=== PATIENT | female | born 1945 | race African-American/Black ===

== ENCOUNTER → 2018-01-04 | Day surgery (SDC) | payer OTHER ==
[~2018-01-04] MED LIST: PROPOFOL 20 ML IV
[2018-01-04 08:30] LABS: POC GLUCOSE 152 mg/dL (70-99)
[2018-01-04] MEDS: IV RINGERS,LACTATED 1000ML 1,000 ML IV (08:34)
== END | disposition home or self-care (01) ==
LOC: SURG 07:58
DX: K57.30 Diverticulosis of large intestine without perforation or abscess without bleeding (principal); I10 Essential (primary) hypertension; E78.5 Hyperlipidemia, unspecified; E11.9 Type 2 diabetes mellitus without complications; Z90.49 Acquired absence of other specified parts of digestive tract; J44.9 Chronic obstructive pulmonary disease, unspecified; Z90.710 Acquired absence of both cervix and uterus; Z90.79 Acquired absence of other genital organ(s); Z90.722 Acquired absence of ovaries, bilateral; Z98.890 Other specified postprocedural states; Z79.82 Long term (current) use of aspirin; Z79.84 Long term (current) use of oral hypoglycemic drugs; Z79.899 Other long term (current) drug therapy; Z87.442 Personal history of urinary calculi
CPT/HCPCS: 45380; 82962; 88305; J2704

== ENCOUNTER → 2018-02-17 | Outpatient (CLI) | payer OTHER ==
[2018-01-04 09:44] VITALS: BP 115/66
[~2018-02-17] MED LIST changes: +ASPI-630 PO; +GLIP5TAB10 PO; +LORA10TA68 PO; +LOSA1TAB22 PO; +METF10003 PO; +OMEG1CAP6 PO; +PROAIR HFA8.5 GM INH; -PROPOFOL 20 ML IV; +REGADENOSON 0.4 MG/5 ML DISP.SYRIN. IV ONE; +SIMV40TA3 PO; +TIOT18CA IH
--- NOTE | 2018-02-17 11:30 | RAD ---
MR#: [id number] Date of Study: 02/17/2018 Ordering Physician: ALPHONSE FERRER, Referring Physician: KANCHAN BLACKWELL Tech: RT Madison (R) (N) APPROVED REPORT Test Type: Pharmacological Stress Nurse/Tech: Jayne Goldsmith R.N. Test Indications: chest pain x 1 month Cardiac History: htn, copd, dm Medications: see printout Medical History: see printout Resting ECG: sr Resting Heart Rate: 59 bpm Resting Blood Pressure: 142/94mmHg Pretest Chest Pain: No chest pain Nurse/Tech Notes lungs cta, heart tones regular Consent: The procedure was explained to the patient in lay terms. Informed consent was witnessed. Lamin eout was entered into [employer]. History and Stress Test performed by MADELINE Luevano Pharm. Details Pharmacologic stress testing was performed using 0.4mg per 5ml of regadenoson given intravenously ove r 7-10 seconds. Stress Symptoms pt c/o R sided tightness and hart POST EXERCISE Reason for Termination: Infusion complete Target HR: No Max HR: 93 bpm Max Blood Pressure: 172/67mmHg Chest Pain: No. Arrhythmia: No. ST Change: No. INTERPRETATION Stress EKG Conclusion: Baseline EKG showed sinus rhythm. No ischemic changes at peak stress. No arr hythmias. Imaging Protocol IMAGE PROTOCOL: Rest Tc-99m/stress Tc-99m 1 day Rest: Stress: Viability: Radiopharm.Tc99m OvuohazhnOi24l Sestamibi Dose11.5mCi 36.1mCi Duration 13min. 13min. Img Date 02/17/2018 02/17/2018 Inj-Img [id number]. 60min. Rest Admin Site:IV - Right AntecubitalAdministrator:RT Jean-Pierre Wallace)(N) Stress Admin Site: IV - Right AntecubitalAdministrator: MADELINE Luevano STRESS DATA End Diast. Vol.68.0mlLVEDV index BSA34.0ml End Syst. Vol.12.0mlLVESV index BSA6.0ml Myocardial Kila822.0gEject. Ufmpixlg74.0% Stress Scores Regional WT0.00Summed WT0.00 Regional WM0.00Summed WM1.00 Study quality was good. Left Ventricular size was Normal at Rest and Stress. Lung uptake was Normal. Left Ventricular ejection fraction is 82%. The rest and stress images show normal perfusion, normal contraction and thickening. LV Perf. Quant 17 Seg. SSS0.00 17 Seg. SRS0.00 17 Seg. SDS0.00 Stress Defect Extent (% LAD)0.00Rest Defect Extent (% LAD)0.00Rev. Defect Extent (% LAD)0.00 Stress Defect Extent (% LCX) 0.00Rest Defect Extent (% LCX)0.00Rev. Defect Extent (% LCX)0.00 Stress Defect Extent (% RCA)0.00Rest Defect Extent (% RCA)0.00Rev. Defect Extent (% RCA)0.00 Stress Defect Extent (% SYLVIE)0.00Rest Defect Extent (% SYLVIE)0.00Rev. Defect Extent (% SYLVIE)0.00 Conclusion 1. Regadenoson cardioisotope stress test did not show any evidence of ischemia or infarct. 2. Normal left ventricular systolic function with ejection fraction calculated at 82%. 3. Low risk for cardiac events. Signed by : Willis Glynn Electronically Approved : 02/17/2018 11:28:59
== END | disposition home or self-care (01) ==
LOC: NM 07:16
PROVIDERS: ATTEND Internal Medicine
DX: R07.89 Other chest pain (principal); I10 Essential (primary) hypertension; E11.9 Type 2 diabetes mellitus without complications; J44.9 Chronic obstructive pulmonary disease, unspecified; Z79.899 Other long term (current) drug therapy
CPT/HCPCS: 78452; 93017; 96374; 96375; 96376; A9500; J2785

== ENCOUNTER 2018-08-08 17:58 | Emergency (ER) | payer OTHER ==
[~2018-08-08] VITALS: Ht 175.3 cm; Wt 83.9 kg
[~2018-08-08 17:58] MED LIST changes: +ALBU2.5V8 INH; -METF10003 PO; +METF10007 PO; -PROAIR HFA8.5 GM INH; -REGADENOSON 0.4 MG/5 ML DISP.SYRIN. IV ONE
[2018-08-08 18:30] VITALS: BP 161/74
[2018-08-08] MEDS ORDERED: IPRATRPIUM/ALBUTEROL 0.5/2.5MG 3 ML NEBU. NEB ONE (19:00)
[2018-08-08 19:08] LABS: BASO # 0.1 x10^3/uL (0.0-0.2); BASO % 1 % (0-3); EOS # 0.1 x10^3/uL (0.0-0.7); EOS % 2 % (0-3); HEMATOCRIT 37.3 % (36.0-47.0); HEMOGLOBIN 12.1 g/dL (12.0-15.5); LYMPH # 2.8 x10^3/uL (1.0-4.8); LYMPH % 33 % (24-48); MEAN CORPUSCULAR HEMOGLOBIN 28 pg (25-35); MEAN CORPUSCULAR HGB CONC 32 g/dL (31-37); MEAN CORPUSCULAR VOLUME 86 fL (79-100); MONO # 0.8 x10^3/uL (0.0-1.1); MONO % 9 % (0-9); NEUT # 4.7 x10^3uL (1.8-7.7); NEUT % 55 % (31-73); PLATELET COUNT 245 x10^3/uL (140-400); RED BLOOD COUNT 4.32 x10^6/uL (3.50-5.40); RED CELL DISTRIBUTION WIDTH 13.5 % (11.5-14.5); WHITE BLOOD COUNT 8.5 x10^3/uL (4.0-11.0)
[2018-08-08 19:21] LABS: CALCIUM 11.1 mg/dL (8.5-10.1); GFR 66.3; POTASSIUM 3.9 mmol/L (3.5-5.1)
--- NOTE | 2018-08-08 19:24 | RAD ---
PA and lateral chest. HISTORY: Left arm discomfort, chronic productive cough, hypertension, COPD PA and lateral views were taken of the chest. There is elevation of the right diaphragm. Heart is normal in size. There is no effusion. There is no confluent infiltrate. IMPRESSION: 1. No acute infiltrates. Electronically signed by: Robel Christine MD (08/08/2018 7:19 PM) [facility]
[2018-08-08 19:27] LABS: ALBUMIN 4.2 g/dL (3.4-5.0); TOTAL BILIRUBIN 0.3 mg/dL (0.2-1.0); TOTAL PROTEIN 8.3 g/dL (6.4-8.2)
[2018-08-08 20:04] LABS: BILIRUBIN,URINE NEGATIVE (NEG); CLARITY,URINE CLEAR; COLOR,URINE YELLOW; NITRITE,URINE NEGATIVE (NEG); PROTEIN,URINE NEGATIVE (NEG-TRACE); UROBILINOGEN,URINE 0.2 mg/dL (0.2 mg/dL)
[2018-08-08 20:08] LABS: BACTERIA,URINE FEW /HPF (0-FEW); SQUAMOUS EPITHELIAL CELL,UR MOD /LPF
[2018-08-08 20:09] LABS: RBC,URINE 0 /HPF (0-2)
[2018-08-08] MEDS ORDERED: PRED50TA PO (20:26)
--- NOTE | 2018-08-08 20:27 | PHYS DOC ---
Past Medical History Past Medical History: COPD, Depression, Diabetes-Type II, High Cholesterol, Hypertension (LEDA JAIME APRN) Past Surgical History: Hysterectomy, Other Additional Past Surgical Histo: cyst removed from under right breast (LEDA JAIME APRN) Alcohol Use: Occasionally Drug Use: None (LEDA JAIME APRN) Adult General Chief Complaint Chief Complaint: UPPER EXTREMITY PAIN HPI HPI Patient is a 72 year old female who presents with pain in her left shoulder that is worse with movement. No known injury. She states the pain started today. She has not tried OTC medications. She denies SOA, diaphoresis, chest or abdominal pain. (LEDA JAIME APRN) Review of Systems Review of Systems Constitutional: Denies fever or chills [] Eyes: Denies change in visual acuity, redness, or eye pain [] HENT: Denies nasal congestion or sore throat [] Respiratory: Denies cough or shortness of breath [] Cardiovascular: No additional information not addressed in HPI [] GI: Denies abdominal pain, nausea, vomiting, bloody stools or diarrhea [] : Denies dysuria or hematuria [] Musculoskeletal: See HPI Integument: Denies rash or skin lesions [] Neurologic: Denies headache, focal weakness or sensory changes [] Endocrine: Denies polyuria or polydipsia [] All other systems were reviewed and found to be within normal limits, except as documented in this note. (LEDA JAIME APRN) Current Medications Current Medications Current Medications Medications (Trade) Dose Ordered Sig/Enma Start Time Stop Time Status Last Admin Dose Admin Albuterol/ Ipratropium (Duoneb) 3 ml 1X ONCE 08/08/18 19:00 08/08/18 19:01 DC 08/08/18 18:55 3 ML (ALPHONSE RASHID DO) Allergies Allergies Allergies Coded Allergies Type Severity Reaction Last Updated Verified No Known Drug Allergies 01/04/18 No (ALPHONSE RASHID DO) Physical Exam Physical Exam Constitutional: Well developed, well nourished, no acute distress, non-toxic appearance. [] Cardiovascular:Heart rate regular rhythm, no murmur [] Lungs & Thorax: Bilateral breath sounds clear to auscultation [] Abdomen: Bowel sounds normal, soft, no tenderness, no masses, no pulsatile masses. [] Skin: Warm, dry, no erythema, no rash. [] Back: No tenderness, no CVA tenderness. [] Extremities: tenderness to left shoulder with movement, no cyanosis, no clubbing, ROM intact, no edema. [] Neurologic: Alert and oriented X 3, normal motor function, normal sensory function, no focal deficits noted. [] Psychologic: Affect normal, judgement normal, mood normal. [] (LEDA JAIME APRN) Current Patient Data Lab Values Laboratory Tests Test 08/08/18 18:59 08/08/18 19:54 White Blood Count 8.5 x10^3/uL (4.0-11.0) Red Blood Count 4.32 x10^6/uL (3.50-5.40) Hemoglobin 12.1 g/dL (12.0-15.5) Hematocrit 37.3 % (36.0-47.0) Mean Corpuscular Volume 86 fL (79-100) Mean Corpuscular Hemoglobin 28 pg (25-35) Mean Corpuscular Hemoglobin Concent 32 g/dL (31-37) Red Cell Distribution Width 13.5 % (11.5-14.5) Platelet Count 245 x10^3/uL (140-400) Neutrophils (%) (Auto) 55 % (31-73) Lymphocytes (%) (Auto) 33 % (24-48) Monocytes (%) (Auto) 9 % (0-9) Eosinophils (%) (Auto) 2 % (0-3) Basophils (%) (Auto) 1 % (0-3) Neutrophils # (Auto) 4.7 x10^3uL (1.8-7.7) Lymphocytes # (Auto) 2.8 x10^3/uL (1.0-4.8) Monocytes # (Auto) 0.8 x10^3/uL (0.0-1.1) Eosinophils # (Auto) 0.1 x10^3/uL (0.0-0.7) Basophils # (Auto) 0.1 x10^3/uL (0.0-0.2) Sodium Level 139 mmol/L (136-145) Potassium Level 3.9 mmol/L (3.5-5.1) Chloride Level 102 mmol/L (98-107) Carbon Dioxide Level 29 mmol/L (21-32) Anion Gap 8 (6-14) Blood Urea Nitrogen 24 mg/dL (7-20) H Creatinine 1.0 mg/dL (0.6-1.0) Estimated GFR (Cockcroft-Gault) 66.3 BUN/Creatinine Ratio 24 (6-20) H Glucose Level 120 mg/dL (70-99) H Calcium Level 11.1 mg/dL (8.5-10.1) H Total Bilirubin 0.3 mg/dL (0.2-1.0) Aspartate Amino Transferase (AST) 16 U/L (15-37) Alanine Aminotransferase (ALT) 28 U/L (14-59) Alkaline Phosphatase 96 U/L (46-116) Troponin I Quantitative < 0.017 ng/mL (0.000-0.055) Total Protein 8.3 g/dL (6.4-8.2) H Albumin 4.2 g/dL (3.4-5.0) Albumin/Globulin Ratio 1.0 (1.0-1.7) Urine Collection Type Unknown Urine Color Yellow Urine Clarity Clear Urine pH 6.0 Urine Specific [place] 1.020 Urine Protein Negative mg/dL (NEG-TRACE) Urine Glucose (UA) Negative mg/dL (NEG) Urine Ketones (Stick) Negative mg/dL (NEG) Urine Blood Negative (NEG) Urine Nitrite Negative (NEG) Urine Bilirubin Negative (NEG) Urine Urobilinogen Dipstick 0.2 mg/dL (0.2 mg/dL) Urine Leukocyte Esterase Negative (NEG) Urine RBC 0 /HPF (0-2) Urine WBC 1-4 /HPF (0-4) Urine Squamous Epithelial Cells Mod /LPF Urine Bacteria Few /HPF (0-FEW) Urine Mucus Mod /LPF Laboratory Tests 08/08/18 18:59 Laboratory Tests 08/08/18 18:59 (ALPHONSE RASHID DO) EKG EKG [] (LEDA JAIME APRN) Radiology/Procedures Radiology/Procedures [] (LEDA JAIME APRN) Radiology/Procedures PROCEDURE: CHEST PA & LATERAL PA and lateral chest. HISTORY: Left arm discomfort, chronic productive cough, hypertension, COPD PA and lateral views were taken of the chest. There is elevation of the right diaphragm. Heart is normal in size. There is no effusion. There is no confluent infiltrate. IMPRESSION: 1. No acute infiltrates. Electronically signed by: Robel Christine MD (08/08/2018 7:19 PM) [facility] (ALPHONSE RASHID DO) Course & Med Decision Making Course & Med Decision Making Pertinent Labs and Imaging studies reviewed. (See chart for details) [] (LEDA JAIME APRN) Dragon Disclaimer Dragon Disclaimer This electronic medical record was generated, in whole or in part, using a voice recognition dictation system. (LEDA JAIME APRN) Departure Departure Impression: Primary Impression: Shoulder strain Disposition: HOME, SELF-CARE Condition: STABLE Referrals: ALPHONSE FERRER MD (PCP) Patient Instructions: Shoulder Joint Replacement, Care After Additional Instructions: Take the medication as prescribed. This should treat your asthma exacerbation as well as your shoulder pain. Follow-up with your primary care provider if not improving in 3 days or return to the emergency department if worsening. None of your cardiac workup showed cause for concern. If you develop chest pain return to the emergency department immediately. Scripts Prednisone (PREDNISONE) 50 Mg Tablet 1 TAB PO DAILY for inflammation, #5 TAB Prov: LEDA JAIME APRN 08/08/18 Attending Signature Attending Signature I have reviewed the PA/POINTING MACHINE OPERATOR's note and plan of care. I was available for consultation as needed during the patient's visit in the emergency department. I agree with the clinical impression, plan, and disposition. (ALPHONSE RASHID DO) LEDA JAIME APRN Aug 08, 2018 20:27 ALPHONSE RASHID DO November 20, 2018 04:49
--- NOTE | 2018-08-09 06:41 | EKG ---
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
== END 2018-08-08 20:39 | disposition home or self-care (01) ==
LOC: ER 17:58
DX: S46.912A Strain of unspecified muscle, fascia and tendon at shoulder and upper arm level, left arm, initial encounter (principal); I10 Essential (primary) hypertension; E78.00 Pure hypercholesterolemia, unspecified; J44.9 Chronic obstructive pulmonary disease, unspecified; E11.9 Type 2 diabetes mellitus without complications; X58.XXXA Exposure to other specified factors, initial encounter; Y93.89 Activity, other specified; Y92.89 Other specified places as the place of occurrence of the external cause; Y99.8 Other external cause status
CPT/HCPCS: 36415; 71046; 80053; 81001; 84484; 85025; 93005; 94640; 99284; J7620

== ENCOUNTER → 2018-10-03 | Outpatient (CLI) | payer OTHER ==
[~2018-10-03] MED LIST changes: +PRED50TA PO
--- NOTE | 2018-10-03 12:10 | KCIC ---
MR of the right ankle HISTORY: Arthralgia of the right knee. Surgery years ago. Chronic pain and swelling. TECHNIQUE: Routine multiplanar sequences are obtained. FINDINGS: Medial meniscus demonstrates no evidence of tear. The lateral meniscus is very small and heterogeneous compatible with chronic tear and/or prior meniscectomy. The anterior and posterior cruciate ligaments are intact. Medial collateral ligament is intact. Iliotibial band unremarkable. Fibular collateral ligament, biceps femoris tendon and popliteus tendon are intact. Extensor mechanism is intact. Moderate joint effusion. No significant Segovia's cyst. Primary osteoarthritis at all joint compartments. Severe chondral loss at the posterior aspect of the lateral joint. Partial chondral thinning at the other joint compartments. No aggressive bone destruction or acute fracture. There are also degenerative changes at the tibiofibular joint. Ovoid structure identified in the posterior aspect of the intracondylar notch measures 5 mm, suspicious for loose body. IMPRESSION: 1. Very abnormal lateral meniscus compatible with degenerative tear and/or prior meniscectomy. 2. Primary osteoarthritis, severe at the lateral joint compartment. 3. Probable small loose body in the posterior intercondylar notch. Electronically signed by: Sandeep Saunders MD (10/03/2018 12:07 PM) [facility] [id number]
== END | disposition home or self-care (01) ==
LOC: KCIC MRI 08:40
PROVIDERS: ATTEND Internal Medicine Rheumatology
DX: M17.11 Unilateral primary osteoarthritis, right knee (principal); M25.461 Effusion, right knee
CPT/HCPCS: 73721

== ENCOUNTER → 2019-09-01 | Outpatient (CLI) | payer MEDICARE, OTHER ==
[~2019-09-01] MED LIST changes: +SIMV40TA18 PO; -SIMV40TA3 PO
--- NOTE | 2019-09-01 16:07 | RAD ---
CHEST PA LATERAL INDICATION: Pleuritic chest pain, cough, sinus congestion. COMPARISON STUDY: 08/08/2018. FINDINGS: Lungs: Asymmetric elevation of the right hemidiaphragm. No pulmonary mass or consolidation. The tracheobronchial tree and hilar structures are normal. Pleura: No pleural effusion or pneumothorax. Heart and Mediastinum: The cardiomediastinal silhouette is normal. The great vessels of the thorax are normal. Bones and Soft Tissues: Degenerative changes of the spine. IMPRESSION: No acute cardiopulmonary process. Electronically signed by: Kel Go MD (09/01/2019 4:04 PM) [id number]
== END ==
LOC: RAD 10:27
PROVIDERS: ATTEND Internal Medicine
DX: R07.81 Pleurodynia (principal)
CPT/HCPCS: 71046

== ENCOUNTER → 2020-04-30 | Outpatient (CLI) | payer OTHER ==
--- NOTE | 2020-04-30 16:32 | KCIC ---
Study: CR CHEST PA LATERAL Indication: Shortness of air. COPD. Smoking history. Pain with inspiration. Comparison: 09/01/2019 Findings: The cardiomediastinal silhouette is within normal limits for size. Unremarkable bambi with redemonstration of a calcified granuloma projecting just below the aortic arch. No lobar consolidation, pleural effusion or pneumothorax. Sigmoid thoracolumbar curvature also present on the comparison. Impression: No acute radiographic abnormality of the chest. No significant change from 09/01/2019. Electronically signed by: GUIDO VENTURA MD (04/30/2020 4:29 PM) [id number]
== END ==
LOC: KCIC 14:52
PROVIDERS: ATTEND Internal Medicine
DX: R06.02 Shortness of breath (principal); Z87.891 Personal history of nicotine dependence; Z87.09 Personal history of other diseases of the respiratory system; M43.8X5 Other specified deforming dorsopathies, thoracolumbar region
CPT/HCPCS: 71046

== ENCOUNTER → 2021-01-28 | Outpatient (CLI) | payer OTHER ==
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
== END ==
LOC: KCIC 11:27 → EDBD 11:27
PROVIDERS: ATTEND Internal Medicine
DX: R07.81 Pleurodynia (principal); I89.8 Other specified noninfective disorders of lymphatic vessels and lymph nodes
CPT/HCPCS: 71100

== ENCOUNTER → 2021-01-30 | Outpatient (CLI) | payer OTHER ==
--- NOTE | 2021-01-30 10:32 | KCIC ---
EXAM: Bilateral digital screening mammogram with tomosynthesis. HISTORY: 75-year-old female presents for screening mammography. TECHNIQUE: Full-field digital craniocaudal and mediolateral oblique 2D and 3D tomosynthesis images of both breasts are obtained for evaluation. Computer aided detection was applied. COMPARISON: 12/19/2018 BREAST PARENCHYMAL DENSITY: Level B - Scattered fibroglandular densities. FINDINGS: There is no new suspicious mass, microcalcification or region of architectural distortion. There are multiple benign circumscribed nodular densities within both breasts, the multiplicity and a ppearance of which favors cysts. IMPRESSION: BI-RADS Category 2: Benign finding(s). RECOMMENDATION: Annual mammography is recommended. If your mammogram demonstrates that you have dense breast tissue, which could hide abnormalities, and if you have other risk factors for breast cancer that have been identified, you might benefit from s upplemental screening tests that may be suggested by your ordering physician. Dense breast tissue, i n and of itself, is a relatively common condition. This information is not provided to cause undue c oncern, but rather to raise your awareness and to promote discussion with your physician regarding th e presence of other risk factors, in addition to dense breast tissue. A report of your mammography re sults will be sent to you and your physician. You should contact your physician if you have any ques tions or concerns regarding this report. Mammography is a sensitive method for finding small breast cancers, but it does not detect them all a nd is not a substitute for careful clinical examination. A negative mammogram does not negate a clin ically suspicious finding and should not result in delay in biopsying a clinically suspicious abnorma lity. PQRS compliance statement - Patient information was entered into a reminder system with a target due date for the next mammogram. "Our facility is accredited by the [employer] [place] [employer] Mammography Program." Electronically signed by: Yanira Strickland MD (01/30/2021 10:30 AM) [email or web address]
== END ==
LOC: KCIC MAMMO 08:57
PROVIDERS: ATTEND Internal Medicine
DX: Z12.31 Encounter for screening mammogram for malignant neoplasm of breast (principal)
CPT/HCPCS: 77063; 77067

== ENCOUNTER → 2021-03-28 | Outpatient (CLI) | payer OTHER ==
--- NOTE | 2021-03-28 17:46 | KCIC ---
XR KNEE_AP BILAT STANDING History: DJD of both knees. Comparison: None. Technique: Standing AP views of the bilateral knees. Findings: Osseous mineralization is normal. No fracture or dislocaton. Right greater than left knee tibiofemora l compartment osteophyte formation with mild narrowing of the right medial tibiofemoral compartment. Impression: 1. Right greater than left knee osteoarthritis. No acute findings. Electronically signed by: Adam Fajardo MD (03/28/2021 5:43 PM) [id number]
== END ==
LOC: KCIC 14:12
PROVIDERS: ATTEND Physical Medicine & Rehabilitation
DX: M17.0 Bilateral primary osteoarthritis of knee (principal); M25.762 Osteophyte, left knee; M25.761 Osteophyte, right knee
CPT/HCPCS: 73565

== ENCOUNTER → 2021-04-04 | Outpatient (CLI) | payer OTHER ==
--- NOTE | 2021-04-04 10:40 | KCIC ---
MRI of the thoracic spine without contrast 04/04/2021 CLINICAL HISTORY: Chronic mid back pain. TECHNIQUE: Unenhanced T1-weighted, T2-weighted and inversion recovery sagittal and T1-weighted and T2 -weighted axial images of the thoracic spine were obtained. FINDINGS: Very mild S-shaped curvature of the thoracolumbar spine is seen. Degenerative signal change s and varying loss of height are seen involving all of the disks of the thoracic spine. Degenerative signal changes are seen within the marrow surrounding these discs. No area of abnormal signal intensi ty is seen involving the thoracic spinal cord. Degenerative changes are seen throughout the thoracic disc spaces consisting of minimal to mild gener alized disc bulges, degenerative changes involving the facet joints and small superimposed focal disc protrusions which measure 2 to 3 mm in AP diameter. These findings result in mild central spinal can al stenosis at T9-T10 and mild to moderate central spinal canal stenosis at T10-11 and T12-L1 without significant cord impingement. Mild to moderate left neural foraminal stenosis is seen at T9-T10. Mil d to moderate bilateral neural foraminal stenosis is seen at T10-11. Mild to moderate right greater t torres left neural foraminal stenosis is seen at T11-12. IMPRESSION: Degenerative changes are seen throughout the thoracic spine as discussed above. These fin dings result in mild central spinal canal stenosis at T9-T10 and mild to moderate central spinal carol l stenosis at T10-11 and T12-L1 without significant cord impingement. Mild to moderate left neural fo raminal stenosis is seen at T9-10. Mild to moderate bilateral neural foraminal stenosis is seen at T1 0-11. Mild to moderate right greater than left neural foraminal stenosis is seen at T11-12. Electronically signed by: Johnson Freed MD (04/04/2021 10:37 AM) [id number]
== END ==
LOC: KCIC MRI 08:27
PROVIDERS: ATTEND Physical Medicine & Rehabilitation
DX: M47.814 Spondylosis without myelopathy or radiculopathy, thoracic region (principal); M48.04 Spinal stenosis, thoracic region; M43.8X5 Other specified deforming dorsopathies, thoracolumbar region; M51.24 Other intervertebral disc displacement, thoracic region
CPT/HCPCS: 72146